=== PATIENT | female | born 1995 | race Caucasian/White ===

== ENCOUNTER 2023-10-15 06:08 | Inpatient (IN) | payer MEDICAID ==
[2023-10-11 11:28] LABS: Urine Bacteria None Seen /hpf (None Seen)
[2023-10-11 11:45] LABS: Basophils # (auto) 0.2 10 ^3/uL (0-0.2); Basophils % (auto) 3.2 % (0.0-2.0); Eosinophils # (auto) 0.3 10 ^3/uL (0-0.8); Eosinophils % (auto) 4.4 % (0.0-7.0); Hemoglobin 13.5 g/dL (12.2-16.2); Lymphocytes # (auto) 1.7 10 ^3/uL (0.4-5.4); Mean Corpuscular Hemoglobin 30.8 pg (28.0-32.0); Mean Corpuscular Hgb Conc. 34.6 g/dL (32.0-36.0); Mean Corpuscular Volume 89.1 fL (80.0-100.0); Monocytes # (auto) 0.4 10 ^3/uL (0-1.3); Monocytes % (auto) 5.4 % (0.0-12.0); Neutrophils # (auto) 4.8 10 ^3/uL (1.6-8.6); Red Blood Cells 4.38 10^6/uL (4.0-5.20); Red Cell Distribution Width 13.1 % (11.8-14.3); White Blood Cell 7.5 10^3/uL (4.4-10.8)
[2023-10-11 11:49] LABS: INR 1.04 (0.9-1.15); Partial Thromboplastin Time 29.3 SEC (24.5-34.5)
[2023-10-11 12:22] LABS: Urine Blood Negative /uL (Negative); Urine Clarity Clear (Clear); Urine Color Colorless (Yellow); Urine Protein, UAD Negative (Negative); Urine Specific Gravity 1.004 (1.001-1.035); Urine Urobilinogen Normal (Negative); Urine WBC 1 /hpf (0 - 5)
[2023-10-11 12:30] LABS: Alanine Aminotransferase 14 U/L (7-40); Albumin 4.6 g/dL (3.2-4.8); Alkaline Phosphatase 73 U/L (46-116); Anion Gap 2 (5-15); Aspartate Aminotransferase 11 U/L (13-40); BUN/Creatinine Ratio 8.2 (10.0-20.0); Blood Urea Nitrogen 6 mg/dL (9-23); Calcium 9.4 mg/dL (8.5-10.1); Carbon Dioxide 28 mmol/L (20-30); Chloride 108 mmol/L (98-107); Glucose 85 mg/dL (74-106); Potassium 4.2 mmol/L (3.5-5.1); Sodium 138 mmol/L (136-145)
[2023-10-11 12:31] LABS: Bilirubin, Total 0.3 mg/dL (0.2-1.0)
[~2023-10-15] VITALS: Ht 170.2 cm; Wt 63.0 kg
[~2023-10-15 06:08] MED LIST: GABA400C PO; HYDR-5028 PO; SERT25TA84 PO
[2023-10-15] MEDS ORDERED: MIDAZOLAM HCL 2MG/2ML 2ml VIAL (1mg/ml) ONE (07:05)
[2023-10-15] MEDS ORDERED: fentaNYL CITRATE 100 MCG/2 ML VL ONE (07:05)
[2023-10-15] MEDS ORDERED: GLYCOPYRROLATE 0.2 MG/ML 1ML VIAL ONE (07:05)
[2023-10-15] MEDS ORDERED: KETAMINE 50mg/ML 1ml syringe ONE (07:05)
[2023-10-15] MEDS ORDERED: ONDANSETRON HCL 4 MG/2 ML VIAL ONE (07:05)
[2023-10-15] MEDS ORDERED: KETOROLAC TROMETH 30 MG/ML 1ML VIAL ONE (07:05)
[2023-10-15] MEDS ORDERED: HYDROmorphone HCL 2 MG/ML VL/or syr ONE (07:05)
[2023-10-15] MEDS ORDERED: DexAMETHasone SOD PHOS 10MG/1ML VIAL INJ ONE (07:05)
[2023-10-15] MEDS ORDERED: PROPOFOL 10 MG/ML 20 ML IV ONE (07:05)
[2023-10-15] MEDS ORDERED: LIDOCAINE 2% (LOCAL ANESTH.) PF 5ml SDV ONE (07:15)
[2023-10-15] MEDS: levoFLOXacin 500MG 100 ML IV ONE (07:31)
[2023-10-15] MEDS ORDERED: SUGAMMADEX 200mg/2ml Vial (100MG/ML) IV ONE (08:05)
[2023-10-15] MEDS: BUPIVACAINE 0.25% INJ 50ML VIAL ONE (08:08)
[2023-10-15] MEDS: LIDOCAINE W/ EPINEPHRINE 2% INJ 20ML VIAL ONE (08:08)
[2023-10-15] MEDS ORDERED: ONDANSETRON HCL 4 MG/2 ML VIAL IV PRN (08:15)
[2023-10-15] MEDS ORDERED: HYDROmorphone HCL 2 MG/ML VL/or syr IV PRN ×3 (08:15→10:30)
[2023-10-15] MEDS ORDERED: D5W/SOD CHL 0.45%/KCL 20MEQ 1,000 ML IV ONE (08:15)
[2023-10-15 08:33] VITALS: O2SAT 98
[2023-10-15] MEDS: ONDANSETRON HCL 4 MG/2 ML VIAL ONE (08:54)
[2023-10-15] MEDS: ONDANSETRON HCL 4 MG/2 ML VIAL IV ONE (08:56)
[2023-10-15] MEDS: FAMOTIDINE (10MG/ML) 2ML VL IV ONE ×2 (09:29→09:35)
[2023-10-15] MEDS: ePHEDrine SULFATE 50 MG/ML AMP IM ONE (09:35)
[2023-10-15] MEDS ORDERED: levoFLOXacin 250MG 50 ML IV SCH (10:00)
[2023-10-15] MEDS: SODIUM CHLORIDE 0.9% 1,000 ML IV SCH (11:30)
[2023-10-15] MEDS ORDERED: SERT-206 PO (12:34)
[2023-10-15] MEDS: GABAPENTIN 400 MG CAP PO SCH (14:33)
[2023-10-15] MEDS: ACETAMINOPHEN 325 MG TAB PO PRN (15:31)
[2023-10-15 16:10] VITALS: PULSE 75; RESP 14; O2SAT 98
[2023-10-15 16:41] VITALS: BP 109/50; PULSE 75; RESP 14; TEMP 97.9; O2SAT 98
[2023-10-15] MEDS: ACETAMINOPHEN/CODEINE#3 (300/30mg) TAB PO PRN (19:47)
[2023-10-15 20:00] VITALS: PULSE 75; RESP 16; O2SAT 97
[2023-10-15 21:00] VITALS: BP 101/53; PULSE 71; RESP 18; TEMP 97.9; O2SAT 96
[2023-10-16 05:00] VITALS: BP 99/45; PULSE 75; RESP 18; TEMP 98; O2SAT 98
[2023-10-16 07:03] LABS: Basophils # (auto) 0 10 ^3/uL (0-0.2); Basophils % (auto) 0.3 % (0.0-2.0); Eosinophils # (auto) 0 10 ^3/uL (0-0.8); Eosinophils % (auto) 0.1 % (0.0-7.0); Hematocrit 32.8 % (36.0-46.0); Hemoglobin 11.1 g/dL (12.2-16.2); Lymphocytes # (auto) 1.9 10 ^3/uL (0.4-5.4); Mean Corpuscular Hemoglobin 30.4 pg (28.0-32.0); Mean Corpuscular Hgb Conc. 33.8 g/dL (32.0-36.0); Monocytes # (auto) 0.6 10 ^3/uL (0-1.3); Monocytes % (auto) 4.8 % (0.0-12.0); Neutrophils # (auto) 10.8 10 ^3/uL (1.6-8.6); Neutrophils % (auto) 80.8 % (37.0-80.0); Red Blood Cells 3.65 10^6/uL (4.0-5.20); Red Cell Distribution Width 13.1 % (11.8-14.3); White Blood Cell 13.4 10^3/uL (4.4-10.8)
[2023-10-16 07:27] LABS: Alanine Aminotransferase 14 U/L (7-40); Albumin 3.5 g/dL (3.2-4.8); Alkaline Phosphatase 56 U/L (46-116); Anion Gap 6 (5-15); Aspartate Aminotransferase 11 U/L (13-40); BUN/Creatinine Ratio 10.9 (10.0-20.0); Bilirubin, Total 0.3 mg/dL (0.2-1.0); Blood Urea Nitrogen 7 mg/dL (9-23); Calcium 8.6 mg/dL (8.5-10.1); Carbon Dioxide 24 mmol/L (20-30); Chloride 111 mmol/L (98-107); Glucose 106 mg/dL (74-106); Potassium 3.7 mmol/L (3.5-5.1); Sodium 141 mmol/L (136-145); Total Protein 5.3 g/dL (5.7-8.2)
[2023-10-16 08:15] VITALS: PULSE 71; RESP 16; O2SAT 97
[2023-10-16 09:00] VITALS: BP 100/50; PULSE 71; RESP 20; TEMP 98; O2SAT 97
[2023-10-16] MEDS: levoFLOXacin 250MG 50 ML IV SCH (10:03)
[2023-10-16] MEDS: SERTRALINE HCL 50 MG TAB PO SCH (10:03)
[2023-10-16] MEDS ORDERED: TRAM-626 PO (11:53)
== END 2023-10-16 13:00 | disposition home or self-care (01) | DRG 513 ==
LOC: SUR 06:08 → OVERFLOW 10:28 → WEST WING 16:23
PROVIDERS: ADMIT Internal Medicine; ATTEND Internal Medicine
PROC: 0UPD4HZ Removal of Contraceptive Device from Uterus and Cervix, Percutaneous Endoscopic Approach (ICD-10-PCS; principal; 2023-10-15 07:31)
DX: T83.39XA Other mechanical complication of intrauterine contraceptive device, initial encounter (principal); F17.290 Nicotine dependence, other tobacco product, uncomplicated; N92.0 Excessive and frequent menstruation with regular cycle; F32.A Depression, unspecified; K66.0 Peritoneal adhesions (postprocedural) (postinfection); Z88.0 Allergy status to penicillin; Y84.8 Other medical procedures as the cause of abnormal reaction of the patient, or of later complication, without mention of misadventure at the time of the procedure; Y92.89 Other specified places as the place of occurrence of the external cause
CPT/HCPCS: 36415; 80053; 81001; 84702; 85025; 85610; 85730; 86850; 86900; 86901; G0378; J1100; J1885; J1956; J2001; J2250; J2405; J2704; J3490